=== PATIENT | female | born 1995 | race Two or more races ===

== ENCOUNTER 2017-05-19 01:09 | Inpatient (IN) | payer MEDICAID ==
[2017-05-19] MEDS ORDERED: Lidocaine 1% 50 ML MDV INJECT ONE (01:33)
[2017-05-19] MEDS ORDERED: Nalbuphine 20 MG/1 ML Amp IVPUSH PRN (01:33)
[2017-05-19] MEDS ORDERED: Sodium Chloride 0.9% 10 ML Syringe FLUSH PRN (01:33)
[2017-05-19] MEDS ORDERED: Ondansetron 4 MG/2 ML SDV IVPUSH PRN ×2 (01:33→07:41)
[2017-05-19] MEDS ORDERED: Oxytocin/Lactated Ringers 10 UNIT/1,000 ML BAG IV SCH ×2 (01:45→13:15)
[2017-05-19] MEDS ORDERED: Measles, Mumps & Rubella Vaccine 0.5 ML SDV SUBCUT ONE (02:29)
[2017-05-19] MEDS: Lactated Ringers 1,000 ML IV SCH ×4 (03:08→10:49)
--- NOTE | 2017-05-19 07:01 | PCM.LDHP ---
L&D History of Present Illness - General Date of Service: 05/19/17 Admit Problem/Dx: Patient Status Order with Admit Dx/Problem 05/19/17 01:33 Patient Status [ADT] Routine Admission Diagnosis/Problem Admission Diagnosis/Problem Normal labor Source of Information: Patient History Limitations: Reports: No Limitations - History of Present Illness Introduction:: Patient is a 22 y/o at 39 2/7 wks who presents in labor. Contractions started yesterday. Progressed throughout evening and came in early this AM and initially found to be 3-4 cm dilated. Now notes pain more constant. Otherwise doing well. 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: : 1 Para: 0 LMP (Approximate): - Past Surgical History HEENT Surgical History: Reports: Tonsillectomy Social & Family History - Family History Family Medical History: Noncontributory - Tobacco Use Smoking Status *Q: Never Smoker Second Hand Smoke Exposure: No - Caffeine Use Caffeine Use: Reports: None - Alcohol Use Alcohol Use History: No Days Per Week of Alcohol Use: 0 - Recreational Drug Use Recreational Drug Use: No H&P Review of Systems - Review of Systems: Review Of Systems: See Below General: Reports: No Symptoms Pulmonary: Reports: No Symptoms Cardiovascular: Reports: No Symptoms Gastrointestinal: Reports: No Symptoms Genitourinary: Reports: No Symptoms Musculoskeletal: Reports: No Symptoms Neurological: Reports: No Symptoms L&D Exam - Exam Exam: See Below - Vital Signs Vital Signs: Last Vital Signs Temp 36.8 C 05/19/17 01:33 Pulse 94 05/19/17 01:33 Resp 17 05/19/17 01:33 BP 144/90 H 05/19/17 01:33 Pulse Ox 98 05/19/17 01:33 Weight: 111.901 kg - OB Specific Contraction Intensity: Moderate Movement: Active Heart Tones: Present Heart Tones per Min: 130 Heart Rate (FHR) Variability: Moderate (6-25 bmp) Presentation: Vertex - Hodges Score Hodges Score Cervix Position: Midposition Hodges Score Consistency: Soft Hodges Score Effacement: >80% Hodges Score Dilation: > 5 cm Hodges Score Infant's Station: -1 ,0 Hodges Score Total: 11 - Exam General: Alert, Oriented, Cooperative Lungs: Clear to Auscultation, Normal Respiratory Effort Cardiovascular: Regular Rate, Regular Rhythm GI/Abdominal Exam: Soft, Non-Tender Genitourinary: Normal external exam Extremities: Normal Inspection Skin: Warm, Dry, Intact - Patient Data Lab Results Last 24 hrs: Laboratory Results - last 24 hr 05/19/17 05/19/17 05/19/17 Range/Units 01:53 01:53 01:53 WBC 10.48 H (3.98-10.04) K/mm3 RBC 4.13 (3.98-5.22) M/mm3 Hgb 11.6 (11.2-15.7) gm/L Hct 35.5 (34.1-44.9) % MCV 86.0 (79.4-94.8) fl MCH 28.1 (25.6-32.2) pg MCHC 32.7 (32.2-35.5) g/dl RDW Std Deviation 47.5 H (36.4-46.3) fL Plt Count 274 (182-369) K/mm3 MPV 10.1 (9.4-12.3) fl Neut % (Auto) 74.2 H (34.0-71.1) % Lymph % (Auto) 17.8 L (19.3-51.7) % [place] % (Auto) 7.3 (4.7-12.5) % Eos % (Auto) 0.3 L (0.7-5.8) Baso % (Auto) 0.1 (0.1-1.2) % Neut # (Auto) 7.78 H (1.56-6.13) K/mm3 Lymph # (Auto) 1.87 (1.18-3.74) K/mm3 [place] # (Auto) 0.76 H (0.24-0.36) K/mm3 Eos # (Auto) 0.03 L (0.04-0.36) K/mm3 Baso # (Auto) 0.01 (0.01-0.08) K/mm3 BUN 6 L (7-18) mg/dL Creatinine 0.6 (0.55-1.02) mg/dL Est Cr Clr Drug Dosing 117.31 mL/min Estimated GFR (MDRD) > 60 (>60) mL/min Uric Acid 2.5 L (2.6-6.0) mg/dL AST 20 (15-37) U/L ALT 19 (14-59) U/L Lactate Dehydrogenase 130 (81-234) U/L Blood Type A POSITIVE Gel Antibody Screen Negative Result Diagrams: 05/19/17 01:53 05/19/17 01:53 - Problem List (1) 39 weeks gestation of SNOMED Code(s): 66479408 ICD Code: Z3A.39 - 39 WEEKS GESTATION OF Status: Acute Current Visit: Yes (2) Rubella non-immune status, antepartum SNOMED Code(s): 623880020 ICD Code: O99.89 - OTH DISEASES AND CONDITIONS COMPL PREG/CHLDBRTH; Z28.3 - UNDERIMMUNIZATION STATUS Status: Acute Current Visit: Yes (3) Normal labor SNOMED Code(s): 62605868 ICD Code: O80 - ENCOUNTER FOR FULL-TERM UNCOMPLICATED DELIVERY; Z37.9 - OUTCOME OF DELIVERY, UNSPECIFIED Status: Acute Current Visit: Yes Problem List Initiated/Reviewed/Updated: Yes Orders Last 24hrs: Active Orders 24 hr Category Date Time Status Patient Status [ADT] Routine ADT 05/19/17 01:33 Active Activity as Tolerated [RC] PFP Care 05/19/17 01:33 Active Communication Order [RC] ASDIRECTED Care 05/19/17 01:33 Active Notify Provider [RC] PFP Care 05/19/17 01:33 Active Notify Provider [RC] PRN Care 05/19/17 01:33 Active Peripheral IV Care [RC] . DIRECTED Care 05/19/17 01:34 Active Vaccines to be Administered [RC] PER UNIT ROUTINE Care 05/19/17 02:30 Active Vital Signs [RC] PER UNIT ROUTINE Care 05/19/17 01:33 Active Regular Diet [DIET] Diet 05/19/17 Breakfast Active PATIENT RETYPE [BBK] Stat Lab 05/19/17 01:53 Results TYPE AND SCREEN [BBK] Stat Lab 05/19/17 01:53 Results Lactated Ringers [Ringers, Lactated] 1,000 ml Med 05/19/17 01:45 Active IV ASDIRECTED Nalbuphine [Nubain] Med 05/19/17 01:33 Active 10 mg IVPUSH Q2H PRN Ondansetron [Zofran] Med 05/19/17 01:33 Active 4 mg IVPUSH Q4H PRN Oxytocin/Lactated Ringers [Pitocin in LR 10 Units/1,000 Med 05/19/17 01:45 Active ML] 10 unit in 1,000 ml IV .CONTINUOUS Sodium Chloride 0.9% [Saline Flush] Med 05/19/17 01:33 Active 10 ml FLUSH ASDIRECTED PRN Electronic Heart Tones Ext w TOCO [WOMSER] Oth 05/19/17 01:33 Ordered Routine Electronic Heart Tones Internal [WOMSER] Per Unit Oth 05/19/17 01:33 Ordered Routine PIH Panel [OM.PC] Stat Ot 05/19/17 01:33 Ordered Peripheral IV Insertion Adult [OM.PC] Routine Oth 05/19/17 01:33 Ordered Resuscitation Status Routine Resus Stat 05/19/17 01:33 Ordered Medication Orders Lactated Ringer's (Ringers, Lactated) 1,000 mls @ 100 mls/hr IV ASDIRECTED HONORIO Last Admin: 05/19/17 03:08 Dose: 100 mls/hr Oxytocin/Lactated Ringer's (Pitocin In Lr 10 Units/1,000 Ml) 10 unit in 1,000 mls @ 500 mls/hr IV .CONTINUOUS HONORIO Nalbuphine HCl (Nubain) 10 mg IVPUSH Q2H PRN PRN Reason: Pain (moderate 4-6) Ondansetron HCl (Zofran) 4 mg IVPUSH Q4H PRN PRN Reason: Nausea/Vomiting Sodium Chloride (Saline Flush) 10 ml FLUSH ASDIRECTED PRN PRN Reason: Keep Vein Open Assessment/Plan Comment:: 22 y/o at 39 2/7 wks who presents in labor. * CBC and T&S * First BP elevated. Gestational HTN labs done and WNL. Continue to monitor closely * Pain management per patient preference * Anticipate * MMR after delivery
[2017-05-19] MEDS ORDERED: fentaNYL 100 MCG/2 ML SDV EPIDUR PRN (07:41)
[2017-05-19] MEDS ORDERED: ePHEDrine 50 MG/ML SDV IVPUSH PRN (07:41)
[2017-05-19] MEDS ORDERED: Bupivacaine 0.25% 10 ML SDV ONE (07:45)
--- NOTE | 2017-05-19 07:55 | PCM.PREANE ---
Preanesthetic Assessment - Anesthesia/Transfusion/Family Hx Anesthesia History: Prior Anesthesia Without Reaction Family History of Anesthesia Reaction: No Transfusion History: No Prior Transfusion(s) Intubation History: Unknown - Review of Systems General: No Symptoms Pulmonary: No Symptoms Cardiovascular: No Symptoms Gastrointestinal: No Symptoms Neurological: No Symptoms Other: Reports: None - Physical Assessment Pulse: 112 O2 Sat by Pulse Oximetry: 98 Respiratory Rate: 17 Blood Pressure: 135/77 Vital Signs: Last Vital Signs Temp 36.8 C 05/19/17 01:33 Pulse 112 H 05/19/17 06:33 Resp 17 05/19/17 01:33 BP 135/77 05/19/17 04:26 Pulse Ox 98 05/19/17 01:33 Height: 1.57 m Weight: 111.901 kg ASA Class: 2 Mental Status: Alert & Oriented x3 Dentition: Reports: Normal Dentition ROM/Head Extension: Full Lungs: Clear to Auscultation Cardiovascular: Regular Rate, Regular Rhythm, No Murmurs - Lab Values: Laboratory Last Values WBC 10.48 K/mm3 (3.98-10.04) H 05/19/17 01:53 RBC 4.13 M/mm3 (3.98-5.22) 05/19/17 01:53 Hgb 11.6 gm/L (11.2-15.7) 05/19/17 01:53 Hct 35.5 % (34.1-44.9) 05/19/17 01:53 MCV 86.0 fl (79.4-94.8) 05/19/17 01:53 MCH 28.1 pg (25.6-32.2) 05/19/17 01:53 MCHC 32.7 g/dl (32.2-35.5) 05/19/17 01:53 RDW Std Deviation 47.5 fL (36.4-46.3) H 05/19/17 01:53 Plt Count 274 K/mm3 (182-369) 05/19/17 01:53 MPV 10.1 fl (9.4-12.3) 05/19/17 01:53 Neut % (Auto) 74.2 % (34.0-71.1) H 05/19/17 01:53 Lymph % (Auto) 17.8 % (19.3-51.7) L 05/19/17 01:53 [place] % (Auto) 7.3 % (4.7-12.5) 05/19/17 01:53 Eos % (Auto) 0.3 (0.7-5.8) L 05/19/17 01:53 Baso % (Auto) 0.1 % (0.1-1.2) 05/19/17 01:53 Neut # (Auto) 7.78 K/mm3 (1.56-6.13) H 05/19/17 01:53 Lymph # (Auto) 1.87 K/mm3 (1.18-3.74) 05/19/17 01:53 [place] # (Auto) 0.76 K/mm3 (0.24-0.36) H 05/19/17 01:53 Eos # (Auto) 0.03 K/mm3 (0.04-0.36) L 05/19/17 01:53 Baso # (Auto) 0.01 K/mm3 (0.01-0.08) 05/19/17 01:53 BUN 6 mg/dL (7-18) L 05/19/17 01:53 Creatinine 0.6 mg/dL (0.55-1.02) 05/19/17 01:53 Est Cr Clr Drug Dosing 117.31 mL/min 05/19/17 01:53 Estimated GFR (MDRD) > 60 mL/min (>60) 05/19/17 01:53 Uric Acid 2.5 mg/dL (2.6-6.0) L 05/19/17 01:53 AST 20 U/L (15-37) 05/19/17 01:53 ALT 19 U/L (14-59) 05/19/17 01:53 Lactate Dehydrogenase 130 U/L (81-234) 05/19/17 01:53 Blood Type A POSITIVE 05/19/17 01:53 Gel Antibody Screen Negative 05/19/17 01:53 - Allergies Allergies/Adverse Reactions: Allergies Allergy/AdvReac Type Severity Reaction Status Date / Time No Known Allergies 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 [No Known Home Meds] 07/31/14 [History] - CURRENT (IN HOUSE) MEDS Current Meds: Current Medications Ephedrine Sulfate (Ephedrine Sulfate) 5 mg IVPUSH ASDIRECTED PRN PRN Reason: Hypotension Fentanyl (Sublimaze) 100 mcg EPIDUR Q3H PRN PRN Reason: Pain Fentanyl/Bupivacaine HCl (Fentanyl/Bupivacaine/Ns 2 Mcg-0.125% 100 Ml) 100 ml EPIDUR ASDIRECTED HONORIO Lactated Ringer's (Ringers, Lactated) 1,000 mls @ 100 mls/hr IV ASDIRECTED HONORIO Last Admin: 05/19/17 03:08 Dose: 100 mls/hr Oxytocin/Lactated Ringer's (Pitocin In Lr 10 Units/1,000 Ml) 10 unit in 1,000 mls @ 500 mls/hr IV .CONTINUOUS HONORIO Nalbuphine HCl (Nubain) 10 mg IVPUSH Q2H PRN PRN Reason: Pain (moderate 4-6) Ondansetron HCl (Zofran) 4 mg IVPUSH Q4H PRN PRN Reason: Nausea/Vomiting Ondansetron HCl (Zofran) 4 mg IVPUSH ONETIME PRN PRN Reason: Nausea/Vomiting Sodium Chloride (Saline Flush) 10 ml FLUSH ASDIRECTED PRN PRN Reason: Keep Vein Open Discontinued Medications Lidocaine HCl (Xylocaine 1%) 50 ml INJECT ASDIRECTED ONE Stop: 05/19/17 01:34 Measles/Mumps/Rubella Vaccine Live (M-M-R Ii Vaccine) 0.5 ml SUBCUT .ONCE ONE Stop: 05/19/17 02:30
[2017-05-19] MEDS: Bupivacaine/fentaNYL/NS 100 ML Bag EPIDUR SCH ×2 (08:42→15:39)
--- NOTE | 2017-05-19 10:22 | PCM.PNLD ---
Labor Progress Note - VS & Meds Vital Signs: Last Vital Signs Temp 36.8 C 05/19/17 01:33 Pulse 127 H 05/19/17 08:00 Resp 17 05/19/17 07:52 BP 135/77 05/19/17 07:52 Pulse Ox 100 05/19/17 08:00 Active Medications: Current Medications Ephedrine Sulfate (Ephedrine Sulfate) 5 mg IVPUSH ASDIRECTED PRN PRN Reason: Hypotension Fentanyl (Sublimaze) 100 mcg EPIDUR Q3H PRN PRN Reason: Pain Last Admin: 05/19/17 08:41 Dose: 100 mcg Fentanyl/Bupivacaine HCl (Fentanyl/Bupivacaine/Ns 2 Mcg-0.125% 100 Ml) 100 ml EPIDUR ASDIRECTED HONORIO Last Admin: 05/19/17 08:42 Dose: 100 ml Lactated Ringer's (Ringers, Lactated) 1,000 mls @ 100 mls/hr IV ASDIRECTED HONORIO Last Admin: 05/19/17 09:02 Dose: 500 mls/hr Oxytocin/Lactated Ringer's (Pitocin In Lr 10 Units/1,000 Ml) 10 unit in 1,000 mls @ 500 mls/hr IV .CONTINUOUS HONORIO Nalbuphine HCl (Nubain) 10 mg IVPUSH Q2H PRN PRN Reason: Pain (moderate 4-6) Ondansetron HCl (Zofran) 4 mg IVPUSH Q4H PRN PRN Reason: Nausea/Vomiting Ondansetron HCl (Zofran) 4 mg IVPUSH ONETIME PRN PRN Reason: Nausea/Vomiting Sodium Chloride (Saline Flush) 10 ml FLUSH ASDIRECTED PRN PRN Reason: Keep Vein Open Discontinued Medications Lidocaine HCl (Xylocaine 1%) 50 ml INJECT ASDIRECTED ONE Stop: 05/19/17 01:34 Measles/Mumps/Rubella Vaccine Live (M-M-R Ii Vaccine) 0.5 ml SUBCUT .ONCE ONE Stop: 05/19/17 02:30 - Uterine Contractions Uterine Monitoring Mode: External [place] Contraction Intensity: Moderate - Monitoring Monitor Mode: External Ultrasound Heart Rate (FHR) Baseline: 135 Heart Rate (FHR) Variability: Moderate (6-25 bmp) Accelerations: Present, 15x15 Decelerations: None Strip Review: Category I - Vaginal Exam Dilation (cm): 5 Effacement (Percent): 100 Station: -1 Cervical Position: Midposition - Labor Progress (Free Text) Labor Progress: Patient doing well. Comfortable with epidural. AROM performed with release of clear fluid. Continue present management
--- NOTE | 2017-05-19 18:39 | PCM.DEL ---
L & D Note - General Info Date of Service: 05/19/17 - Delivery Note Labor: Augmented by Oxytocin Delivery Outcome: Livebirth Delivery Method: Spontaneous Vaginal Delivery-Single Infant Delivery Mode: Spontaneous Presentation: Left Occiput Anterior (ANTONELLA) Nuchal Cord: Present (Tight and so not able to be reduced) Anesthesia Type: Epidural Amniotic Fluid Description: Clear Episiotomy Type: None Laceration: 2nd Degree, Perineal Suture type: Vicryl Suture size: 2-0 Placenta: Intact, Spontaneous Cord: 3 Vessels Estimated Blood Loss: 350 Resuscitation Needed: Yes : Bulb Syringe, Stimulated, Warmed, [place] Used Score 1 min: 7 Score 5 min: 8 Delivery Comments (Free Text/Narrative):: Patient found to be complete and began pushing. With maternal pushing effort head delivered from an ANTONELLA presentation. Nuchal cord present, but tight and not able to be reduced. With gentle downward traction shoulders and body delivered. placed on maternal abdomen. Cord clamped and cut. Cord blood obtained. Placenta allowed time to separate and expelled. Inspection of the perineum showed a 2nd degree laceration which was repaired with a 2-0 vicryl in the typical fashion. - Patient Data Vitals - Most Recent: Last Vital Signs Temp 36.8 C 05/19/17 01:33 Pulse 101 H 05/19/17 13:45 Resp 17 05/19/17 07:52 BP 125/71 05/19/17 13:45 Pulse Ox 100 05/19/17 09:00 Weight - Most Recent: 111.901 kg I&O - Last 24 Hours: Intake & Output 05/19/17 05/19/17 05/19/17 06:59 14:59 22:59 Intake Total 120 0 Balance 120 0 Lab Results Last 24 Hours: Laboratory Results - last 24 hr 05/19/17 05/19/17 05/19/17 Range/Units 01:53 01:53 01:53 WBC 10.48 H (3.98-10.04) K/mm3 RBC 4.13 (3.98-5.22) M/mm3 Hgb 11.6 (11.2-15.7) gm/L Hct 35.5 (34.1-44.9) % MCV 86.0 (79.4-94.8) fl MCH 28.1 (25.6-32.2) pg MCHC 32.7 (32.2-35.5) g/dl RDW Std Deviation 47.5 H (36.4-46.3) fL Plt Count 274 (182-369) K/mm3 MPV 10.1 (9.4-12.3) fl Neut % (Auto) 74.2 H (34.0-71.1) % Lymph % (Auto) 17.8 L (19.3-51.7) % [place] % (Auto) 7.3 (4.7-12.5) % Eos % (Auto) 0.3 L (0.7-5.8) Baso % (Auto) 0.1 (0.1-1.2) % Neut # (Auto) 7.78 H (1.56-6.13) K/mm3 Lymph # (Auto) 1.87 (1.18-3.74) K/mm3 [place] # (Auto) 0.76 H (0.24-0.36) K/mm3 Eos # (Auto) 0.03 L (0.04-0.36) K/mm3 Baso # (Auto) 0.01 (0.01-0.08) K/mm3 BUN 6 L (7-18) mg/dL Creatinine 0.6 (0.55-1.02) mg/dL Est Cr Clr Drug Dosing 117.31 mL/min Estimated GFR (MDRD) > 60 (>60) mL/min Uric Acid 2.5 L (2.6-6.0) mg/dL AST 20 (15-37) U/L ALT 19 (14-59) U/L Lactate Dehydrogenase 130 (81-234) U/L Blood Type A POSITIVE Gel Antibody Screen Negative Med Orders - Current: Current Medications Ephedrine Sulfate (Ephedrine Sulfate) 5 mg IVPUSH ASDIRECTED PRN PRN Reason: Hypotension Fentanyl (Sublimaze) 100 mcg EPIDUR Q3H PRN PRN Reason: Pain Last Admin: 05/19/17 08:41 Dose: 100 mcg Fentanyl/Bupivacaine HCl (Fentanyl/Bupivacaine/Ns 2 Mcg-0.125% 100 Ml) 100 ml EPIDUR ASDIRECTED HONORIO Last Admin: 05/19/17 15:39 Dose: 100 ml Lactated Ringer's (Ringers, Lactated) 1,000 mls @ 100 mls/hr IV ASDIRECTED HONORIO Last Admin: 05/19/17 10:49 Dose: 100 mls/hr Oxytocin/Lactated Ringer's (Pitocin In Lr 10 Units/1,000 Ml) 10 unit in 1,000 mls @ 500 mls/hr IV .CONTINUOUS HONORIO Oxytocin/Lactated Ringer's (Pitocin In Lr 10 Units/1,000 Ml) 10 unit in 1,000 mls @ 12 mls/hr IV TITRATE HONORIO; 2 MUNITS/MIN PRN Reason: Protocol Last Titration: 05/19/17 17:17 Dose: 1 munits/min, 6 mls/hr Nalbuphine HCl (Nubain) 10 mg IVPUSH Q2H PRN PRN Reason: Pain (moderate 4-6) Ondansetron HCl (Zofran) 4 mg IVPUSH Q4H PRN PRN Reason: Nausea/Vomiting Ondansetron HCl (Zofran) 4 mg IVPUSH ONETIME PRN PRN Reason: Nausea/Vomiting Sodium Chloride (Saline Flush) 10 ml FLUSH ASDIRECTED PRN PRN Reason: Keep Vein Open Discontinued Medications Lidocaine HCl (Xylocaine 1%) 50 ml INJECT ASDIRECTED ONE Stop: 05/19/17 01:34 Measles/Mumps/Rubella Vaccine Live (M-M-R Ii Vaccine) 0.5 ml SUBCUT .ONCE ONE Stop: 05/19/17 02:30 - Problem List & Annotations (1) 39 weeks gestation of SNOMED Code(s): 08550019 Code(s): Z3A.39 - 39 WEEKS GESTATION OF Status: Acute Current Visit: Yes (2) Rubella non-immune status, antepartum SNOMED Code(s): 812480460 Code(s): O99.89 - OTH DISEASES AND CONDITIONS COMPL PREG/CHLDBRTH; Z28.3 - UNDERIMMUNIZATION STATUS Status: Acute Current Visit: Yes (3) Normal labor SNOMED Code(s): 70350670 Code(s): O80 - ENCOUNTER FOR FULL-TERM UNCOMPLICATED DELIVERY; Z37.9 - OUTCOME OF DELIVERY, UNSPECIFIED Status: Acute Current Visit: Yes (4) Vaginal delivery SNOMED Code(s): 991192274 Code(s): O80 - ENCOUNTER FOR FULL-TERM UNCOMPLICATED DELIVERY Status: Acute Current Visit: Yes - Problem List Review Problem List Initiated/Reviewed/Updated: Yes - My Orders Last 24 Hours: My Active Orders 05/19/17 01:33 Patient Status [ADT] Routine Activity as Tolerated [RC] PFP Communication Order [RC] ASDIRECTED Notify Provider [RC] PFP Notify Provider [RC] PRN Vital Signs [RC] PER UNIT ROUTINE Nalbuphine [Nubain] 10 mg IVPUSH Q2H PRN Ondansetron [Zofran] 4 mg IVPUSH Q4H PRN Sodium Chloride 0.9% [Saline Flush] 10 ml FLUSH ASDIRECTED PRN Electronic Heart Tones Ext w TOCO [WOMSER] Routine Electronic Heart Tones Internal [WOMSER] Per Unit Routine PIH Panel [OM.PC] Stat Peripheral IV Insertion Adult [OM.PC] Routine Resuscitation Status Routine 05/19/17 01:34 Peripheral IV Care [RC] . DIRECTED 05/19/17 01:45 Lactated Ringers [Ringers, Lactated] 1,000 ml IV ASDIRECTED Oxytocin/Lactated Ringers [Pitocin in LR 10 Units/1,000 ML] 10 unit in 1,000 ml IV .CONTINUOUS 05/19/17 02:30 Vaccines to be Administered [RC] PER UNIT ROUTINE 05/19/17 13:15 Oxytocin/Lactated Ringers [Pitocin in LR 10 Units/1,000 ML] 10 unit in 1,000 ml IV TITRATE 05/19/17 18:35 Patient Status Manage Transfer [TRANSFER] Routine 05/19/17 Breakfast Regular Diet [DIET] - Assessment Assessment:: 22 y/o G1 now P1001 PPD#0 from at 39 2/7 wks - Plan Plan:: * Routine cares * Monitor BP's closely * Encourage breast feeding * Discharge home in 1-2 days * MMR prior to discharge
[2017-05-19] MEDS ORDERED: Lanolin 100% Cream 7 GM Tube TOP PRN (19:03)
[2017-05-19] MEDS ORDERED: Witch Hazel Medicated Pads 100/Jar TOP PRN (19:03)
[2017-05-19] MEDS ORDERED: Benzocaine/Menthol 20%-0.5% Spray 56 GM Canister TOP PRN (19:03)
[2017-05-19] MEDS ORDERED: Acetaminophen 325 MG Tab PO PRN (19:03)
[2017-05-19] MEDS: Ibuprofen 600 MG Tab PO PRN (23:10)
[2017-05-20] MEDS: Ibuprofen 600 MG Tab PO PRN ×2 (08:07→21:11)
[2017-05-20] MEDS: Docusate Sodium 100 MG Cap PO PRN (09:30)
--- NOTE | 2017-05-20 12:46 | PCM48HPAN ---
Post Anesthesia Note - EVALUATION WITHIN 48HRS OF ANESTHETIC Vital Signs in Normal Range: Yes Patient Participated in Evaluation: Yes Respiratory Function Stable: Yes Airway Patent: Yes Cardiovascular Function Stable: Yes Hydration Status Stable: Yes Pain Control Satisfactory: Yes Nausea and Vomiting Control Satisfactory: Yes Mental Status Recovered: Yes - COMMENTS/OBSERVATIONS Free Text/Narrative:: Denied any headaches, back pain, or residual numbness/ tingling to lower extremities.
--- NOTE | 2017-05-20 20:04 | PCM.PNPP ---
- General Info Date of Service: 05/20/17 Functional Status: Reports: Pain Controlled, Tolerating Diet, Ambulating, Urinating - Review of Systems General: Reports: No Symptoms Pulmonary: Reports: No Symptoms Cardiovascular: Reports: No Symptoms Gastrointestinal: Reports: No Symptoms Genitourinary: Reports: No Symptoms Musculoskeletal: Reports: No Symptoms - Patient Data Vital Signs - Most Recent: Last Vital Signs Temp 36.6 C 05/20/17 12:14 Pulse 84 05/20/17 14:03 Resp 18 05/20/17 12:14 BP 113/62 05/20/17 14:03 Pulse Ox 99 05/20/17 14:03 Weight - Most Recent: 111.901 kg I&O - Last 24 Hours: Intake & Output 05/20/17 05/20/17 05/20/17 06:59 14:59 22:59 Intake Total 360 Balance 360 Med Orders - Current: Current Medications Acetaminophen (Tylenol) 650 mg PO Q4H PRN PRN Reason: mild pain or fever Last Admin: 05/20/17 10:20 Dose: 650 mg Benzocaine/Menthol (Dermoplast Pain Relief [place]) 0 gm TOP ASDIRECTED PRN PRN Reason: Perineal Comfort Measure Docusate Sodium (Colace) 100 mg PO BID PRN PRN Reason: Constipation Last Admin: 05/20/17 09:30 Dose: 100 mg Emollient Ointment (Lansinoh Hpa) 0 gm TOP ASDIRECTED PRN PRN Reason: Sore Nipples Ibuprofen (Motrin) 600 mg PO Q6H PRN PRN Reason: Mild pain or fever Last Admin: 05/20/17 08:07 Dose: 600 mg Witch Sima (Tucks) 1 pad TOP ASDIRECTED PRN PRN Reason: Hemorrhoid pain Discontinued Medications Ephedrine Sulfate (Ephedrine Sulfate) 5 mg IVPUSH ASDIRECTED PRN PRN Reason: Hypotension Fentanyl (Sublimaze) 100 mcg EPIDUR Q3H PRN PRN Reason: Pain Last Admin: 05/19/17 08:41 Dose: 100 mcg Fentanyl/Bupivacaine HCl (Fentanyl/Bupivacaine/Ns 2 Mcg-0.125% 100 Ml) 100 ml EPIDUR ASDIRECTED HONORIO Last Admin: 05/19/17 15:39 Dose: 100 ml Lactated Ringer's (Ringers, Lactated) 1,000 mls @ 100 mls/hr IV ASDIRECTED HONORIO Last Admin: 05/19/17 10:49 Dose: 100 mls/hr Oxytocin/Lactated Ringer's (Pitocin In Lr 10 Units/1,000 Ml) 10 unit in 1,000 mls @ 500 mls/hr IV .CONTINUOUS HONORIO Oxytocin/Lactated Ringer's (Pitocin In Lr 10 Units/1,000 Ml) 10 unit in 1,000 mls @ 12 mls/hr IV TITRATE HONORIO; 2 MUNITS/MIN PRN Reason: Protocol Last Titration: 05/19/17 17:17 Dose: 1 munits/min, 6 mls/hr Lidocaine HCl (Xylocaine 1%) 50 ml INJECT ASDIRECTED ONE Stop: 05/19/17 01:34 Last Admin: 05/19/17 19:42 Dose: Not Given Measles/Mumps/Rubella Vaccine Live (M-M-R Ii Vaccine) 0.5 ml SUBCUT .ONCE ONE Stop: 05/19/17 02:30 Last Admin: 05/20/17 10:16 Dose: 0.5 ml Nalbuphine HCl (Nubain) 10 mg IVPUSH Q2H PRN PRN Reason: Pain (moderate 4-6) Ondansetron HCl (Zofran) 4 mg IVPUSH Q4H PRN PRN Reason: Nausea/Vomiting Ondansetron HCl (Zofran) 4 mg IVPUSH ONETIME PRN PRN Reason: Nausea/Vomiting Sodium Chloride (Saline Flush) 10 ml FLUSH ASDIRECTED PRN PRN Reason: Keep Vein Open - Interaction Infant Disposition, : in Room with Family Infant Interaction: Holding Feeding: Attempted ; Nursed Fair/Poor Support Person: Other (see below) - Recovery Exam Fundal Tone: Firm Fundal Level: At Umbilicus Fundal Placement: Midline Lochia Amount: Large Lochia Color: Rubra/Red Perineum Description: Redness Other Perinuem Description: second degree lac with repair Episiotomy/Laceration: Approximated Bladder Status: Voiding Urinary Elimination: Voided - Exam General: Alert, Oriented, Cooperative GI/Abdominal Exam: Soft, Non-Tender Extremities: Normal Inspection Skin: Warm, Dry, Intact - Problem List & Annotations (1) 39 weeks gestation of SNOMED Code(s): 07449773 Code(s): Z3A.39 - 39 WEEKS GESTATION OF Status: Acute Current Visit: Yes (2) Rubella non-immune status, antepartum SNOMED Code(s): 481170915 Code(s): O99.89 - OTH DISEASES AND CONDITIONS COMPL PREG/CHLDBRTH; Z28.3 - UNDERIMMUNIZATION STATUS Status: Acute Current Visit: Yes (3) Normal labor SNOMED Code(s): 85484305 Code(s): O80 - ENCOUNTER FOR FULL-TERM UNCOMPLICATED DELIVERY; Z37.9 - OUTCOME OF DELIVERY, UNSPECIFIED Status: Acute Current Visit: Yes (4) Vaginal delivery SNOMED Code(s): 140405058 Code(s): O80 - ENCOUNTER FOR FULL-TERM UNCOMPLICATED DELIVERY Status: Acute Current Visit: Yes - Problem List Review Problem List Initiated/Reviewed/Updated: Yes - My Orders Last 24 Hours: My Active Orders 05/20/17 19:03 Heat Therapy [OM.PC] PRN - Assessment Assessment:: 22 y/o G1 now P1001 PPD#1 from at 39 2/7 wks - Plan Plan:: * Routine cares * BP's appropriate * Encourage breast feeding * Discharge home tomorrow * MMR prior to discharge
--- NOTE | 2017-05-21 06:58 | PCM.PNPP ---
- General Info Date of Service: 05/21/17 Functional Status: Reports: Pain Controlled, Tolerating Diet, Ambulating, Urinating - Review of Systems General: Reports: No Symptoms Pulmonary: Reports: No Symptoms Cardiovascular: Reports: No Symptoms Gastrointestinal: Reports: No Symptoms Genitourinary: Reports: No Symptoms Musculoskeletal: Reports: No Symptoms - Patient Data Vital Signs - Most Recent: Last Vital Signs Temp 36.7 C 05/20/17 21:08 Pulse 90 05/20/17 21:08 Resp 16 05/20/17 21:08 BP 116/70 05/20/17 21:08 Pulse Ox 99 05/20/17 21:08 Weight - Most Recent: 111.901 kg I&O - Last 24 Hours: Intake & Output 05/20/17 05/20/17 05/21/17 14:59 22:59 06:59 Intake Total 360 Balance 360 Med Orders - Current: Current Medications Acetaminophen (Tylenol) 650 mg PO Q4H PRN PRN Reason: mild pain or fever Last Admin: 05/20/17 10:20 Dose: 650 mg Benzocaine/Menthol (Dermoplast Pain Relief [place]) 0 gm TOP ASDIRECTED PRN PRN Reason: Perineal Comfort Measure Docusate Sodium (Colace) 100 mg PO BID PRN PRN Reason: Constipation Last Admin: 05/20/17 09:30 Dose: 100 mg Emollient Ointment (Lansinoh Hpa) 0 gm TOP ASDIRECTED PRN PRN Reason: Sore Nipples Ibuprofen (Motrin) 600 mg PO Q6H PRN PRN Reason: Mild pain or fever Last Admin: 05/20/17 21:11 Dose: 600 mg Witch Sima (Tucks) 1 pad TOP ASDIRECTED PRN PRN Reason: Hemorrhoid pain Discontinued Medications Ephedrine Sulfate (Ephedrine Sulfate) 5 mg IVPUSH ASDIRECTED PRN PRN Reason: Hypotension Fentanyl (Sublimaze) 100 mcg EPIDUR Q3H PRN PRN Reason: Pain Last Admin: 05/19/17 08:41 Dose: 100 mcg Fentanyl/Bupivacaine HCl (Fentanyl/Bupivacaine/Ns 2 Mcg-0.125% 100 Ml) 100 ml EPIDUR ASDIRECTED HONORIO Last Admin: 05/19/17 15:39 Dose: 100 ml Lactated Ringer's (Ringers, Lactated) 1,000 mls @ 100 mls/hr IV ASDIRECTED HONORIO Last Admin: 05/19/17 10:49 Dose: 100 mls/hr Oxytocin/Lactated Ringer's (Pitocin In Lr 10 Units/1,000 Ml) 10 unit in 1,000 mls @ 500 mls/hr IV .CONTINUOUS HONORIO Oxytocin/Lactated Ringer's (Pitocin In Lr 10 Units/1,000 Ml) 10 unit in 1,000 mls @ 12 mls/hr IV TITRATE HONORIO; 2 MUNITS/MIN PRN Reason: Protocol Last Titration: 05/19/17 17:17 Dose: 1 munits/min, 6 mls/hr Lidocaine HCl (Xylocaine 1%) 50 ml INJECT ASDIRECTED ONE Stop: 05/19/17 01:34 Last Admin: 05/19/17 19:42 Dose: Not Given Measles/Mumps/Rubella Vaccine Live (M-M-R Ii Vaccine) 0.5 ml SUBCUT .ONCE ONE Stop: 05/19/17 02:30 Last Admin: 05/20/17 10:16 Dose: 0.5 ml Nalbuphine HCl (Nubain) 10 mg IVPUSH Q2H PRN PRN Reason: Pain (moderate 4-6) Ondansetron HCl (Zofran) 4 mg IVPUSH Q4H PRN PRN Reason: Nausea/Vomiting Ondansetron HCl (Zofran) 4 mg IVPUSH ONETIME PRN PRN Reason: Nausea/Vomiting Sodium Chloride (Saline Flush) 10 ml FLUSH ASDIRECTED PRN PRN Reason: Keep Vein Open - Interaction Infant Disposition, : in Room with Family Infant Interaction: Holding Feeding: Attempted ; Nursed Fair/Poor, Bottle Fed Support Person: Other (see below) - Recovery Exam Fundal Tone: Firm Fundal Level: At Umbilicus Fundal Placement: Midline Lochia Amount: Large Lochia Color: Rubra/Red Perineum Description: Redness Other Perinuem Description: second degree lac with repair Episiotomy/Laceration: Approximated Bladder Status: Voiding Urinary Elimination: Voided - Exam General: Alert, Cooperative GI/Abdominal Exam: Soft, Non-Tender Extremities: Normal Inspection - Problem List & Annotations (1) 39 weeks gestation of SNOMED Code(s): 78451856 Code(s): Z3A.39 - 39 WEEKS GESTATION OF Status: Acute (2) Rubella non-immune status, antepartum SNOMED Code(s): 101647428 Code(s): O99.89 - OTH DISEASES AND CONDITIONS COMPL PREG/CHLDBRTH; Z28.3 - UNDERIMMUNIZATION STATUS Status: Acute (3) Normal labor SNOMED Code(s): 29304386 Code(s): O80 - ENCOUNTER FOR FULL-TERM UNCOMPLICATED DELIVERY; Z37.9 - OUTCOME OF DELIVERY, UNSPECIFIED Status: Acute (4) Vaginal delivery SNOMED Code(s): 989934966 Code(s): O80 - ENCOUNTER FOR FULL-TERM UNCOMPLICATED DELIVERY Status: Acute - Problem List Review Problem List Initiated/Reviewed/Updated: Yes - My Orders Last 24 Hours: My Active Orders 05/20/17 19:03 Heat Therapy [OM.PC] PRN 05/21/17 06:58 Ready for Discharge [RC] PER UNIT ROUTINE - Assessment Assessment:: 22 y/o G1 now P1001 PPD#2 from at 39 2/7 wks - Plan Plan:: * Routine cares * BP's appropriate * Combinatino breast and bottle feeding * Discharge home today * MMR prior to discharge
--- NOTE | 2017-05-21 06:58 | PCM.DCSUM1 ---
Discharge Summary - Discharge Data Discharge Date: 05/21/17 Discharge Disposition: Home, Self-Care 01 Condition: Good - Discharge Diagnosis/Problem(s) (1) 39 weeks gestation of SNOMED Code(s): 94603278 ICD Code: Z3A.39 - 39 WEEKS GESTATION OF Status: Acute (2) Rubella non-immune status, antepartum SNOMED Code(s): 961174128 ICD Code: O99.89 - OTH DISEASES AND CONDITIONS COMPL PREG/CHLDBRTH; Z28.3 - UNDERIMMUNIZATION STATUS Status: Acute (3) Normal labor SNOMED Code(s): 32773772 ICD Code: O80 - ENCOUNTER FOR FULL-TERM UNCOMPLICATED DELIVERY; Z37.9 - OUTCOME OF DELIVERY, UNSPECIFIED Status: Acute (4) Vaginal delivery SNOMED Code(s): 488449133 ICD Code: O80 - ENCOUNTER FOR FULL-TERM UNCOMPLICATED DELIVERY Status: Acute - Patient Summary/Data Complications: None Consults: None Recommended Follow-up Testing/Procedures: Follow up in 5-6 weeks for check Hospital Course: 22 y/o at 39 1/7 wks who presented in labor. She was augmented with pitocin and progressed well to complete dilation. She underwent an uncomplicated . See delivery note. She was noted to have a few mild range BP's during her labor, but nothing persistent and labs were normal. all BP's WNL. She was eventually discharged home on PPD#2 - Patient Instructions Diet: Regular Diet as Tolerated Activity: As Tolerated Activity, Other: Pelvic Rest for 6 weeks Driving: May Drive Today Showering/Bathing: May Shower Showering/Bathing, Other: May Bathe Notify Provider of: Fever, Increased Pain, Swelling and Redness, Drainage, Nausea and/or Vomiting - Discharge Plan Home Medications: Home Meds Docusate Sodium [Colace] 100 mg PO BID PRN cap 05/20/17 [Rx] Ibuprofen [IJD: Ibuprofen] 600 mg PO Q6H PRN tablet 05/20/17 [Rx] Patient Handouts: Vaginal Delivery, Care After Referrals: Juhi Yates MD [Primary Care Provider] - (5-6 weeks for check ) - Discharge Summary/Plan Comment DC Time >30 min.: No - Patient Data Vitals - Most Recent: Last Vital Signs Temp 36.7 C 10/05/17 21:08 Pulse 90 05/20/17 21:08 Resp 16 05/20/17 21:08 BP 116/70 05/20/17 21:08 Pulse Ox 99 05/20/17 21:08 Weight - Most Recent: 111.901 kg I&O - Last 24 hours: Intake & Output 05/20/17 05/20/17 05/21/17 14:59 22:59 06:59 Intake Total 360 Balance 360 Med Orders - Current: Current Medications Acetaminophen (Tylenol) 650 mg PO Q4H PRN PRN Reason: mild pain or fever Last Admin: 05/20/17 10:20 Dose: 650 mg Benzocaine/Menthol (Dermoplast Pain Relief [place]) 0 gm TOP ASDIRECTED PRN PRN Reason: Perineal Comfort Measure Docusate Sodium (Colace) 100 mg PO BID PRN PRN Reason: Constipation Last Admin: 05/20/17 09:30 Dose: 100 mg Emollient Ointment (Lansinoh Hpa) 0 gm TOP ASDIRECTED PRN PRN Reason: Sore Nipples Ibuprofen (Motrin) 600 mg PO Q6H PRN PRN Reason: Mild pain or fever Last Admin: 05/20/17 21:11 Dose: 600 mg Witch Sima (Tucks) 1 pad TOP ASDIRECTED PRN PRN Reason: Hemorrhoid pain Discontinued Medications Ephedrine Sulfate (Ephedrine Sulfate) 5 mg IVPUSH ASDIRECTED PRN PRN Reason: Hypotension Fentanyl (Sublimaze) 100 mcg EPIDUR Q3H PRN PRN Reason: Pain Last Admin: 05/19/17 08:41 Dose: 100 mcg Fentanyl/Bupivacaine HCl (Fentanyl/Bupivacaine/Ns 2 Mcg-0.125% 100 Ml) 100 ml EPIDUR ASDIRECTED HONORIO Last Admin: 05/19/17 15:39 Dose: 100 ml Lactated Ringer's (Ringers, Lactated) 1,000 mls @ 100 mls/hr IV ASDIRECTED HONORIO Last Admin: 05/19/17 10:49 Dose: 100 mls/hr Oxytocin/Lactated Ringer's (Pitocin In Lr 10 Units/1,000 Ml) 10 unit in 1,000 mls @ 500 mls/hr IV .CONTINUOUS HONORIO Oxytocin/Lactated Ringer's (Pitocin In Lr 10 Units/1,000 Ml) 10 unit in 1,000 mls @ 12 mls/hr IV TITRATE HONORIO; 2 MUNITS/MIN PRN Reason: Protocol Last Titration: 05/19/17 17:17 Dose: 1 munits/min, 6 mls/hr Lidocaine HCl (Xylocaine 1%) 50 ml INJECT ASDIRECTED ONE Stop: 05/19/17 01:34 Last Admin: 05/19/17 19:42 Dose: Not Given Measles/Mumps/Rubella Vaccine Live (M-M-R Ii Vaccine) 0.5 ml SUBCUT .ONCE ONE Stop: 05/19/17 02:30 Last Admin: 05/20/17 10:16 Dose: 0.5 ml Nalbuphine HCl (Nubain) 10 mg IVPUSH Q2H PRN PRN Reason: Pain (moderate 4-6) Ondansetron HCl (Zofran) 4 mg IVPUSH Q4H PRN PRN Reason: Nausea/Vomiting Ondansetron HCl (Zofran) 4 mg IVPUSH ONETIME PRN PRN Reason: Nausea/Vomiting Sodium Chloride (Saline Flush) 10 ml FLUSH ASDIRECTED PRN PRN Reason: Keep Vein Open *Q Meaningful Use (DIS) - VTE *Q VTE Criteria *Q: - Stroke *Q Stroke Criteria *Q: - AMI *Q AMI Criteria *Q:
[2017-05-21] MEDS: Ibuprofen 600 MG Tab PO PRN (08:45)
[2017-05-21] MEDS: Docusate Sodium 100 MG Cap PO PRN (08:46)
[2017-05-21 10:18] VITALS: BP 129/74
== END 2017-05-21 10:00 | disposition home or self-care (01) | DRG 775 ==
LOC: JD.OBCHECK 01:09 → JD.OB 01:13 → JD.OBCHECK 01:33 → JD.OB 02:10 → OBSVTOIN 18:15 → JD.OB 18:15
PROVIDERS: ADMIT Obstetrics & Gynecology; ATTEND Obstetrics & Gynecology
PROC: 10E0XZZ Delivery of Products of Conception, External Approach (ICD-10-PCS; principal; 2017-05-19)
PROC: 0KQM0ZZ Repair Perineum Muscle, Open Approach (ICD-10-PCS; 2017-05-19)
PROC: 10907ZC Drainage of Amniotic Fluid, Therapeutic from Products of Conception, Via Natural or Artificial Opening (ICD-10-PCS; 2017-05-19)
PROC: 00HU33Z Insertion of Infusion Device into Spinal Canal, Percutaneous Approach (ICD-10-PCS; 2017-05-19)
PROC: 3E0R3BZ Introduction of Anesthetic Agent into Spinal Canal, Percutaneous Approach (ICD-10-PCS; 2017-05-19)
PROC: 3E0234Z Introduction of Serum, Toxoid and Vaccine into Muscle, Percutaneous Approach (ICD-10-PCS; 2017-05-20)
DX: O70.1 Second degree perineal laceration during delivery (principal); Z37.0 Single live birth; O69.81X0 Labor and delivery complicated by cord around neck, without compression, not applicable or unspecified; Z3A.39 39 weeks gestation of pregnancy; Z23 Encounter for immunization
CPT/HCPCS: 01967; 36415; 51702; 59409; 82565; 83615; 84450; 84460; 84520; 84550; 85025; 86850; 86900; 86901; 90707; A9270-GY; J2590; J3010; J7120